=== PATIENT | female | born 1965 | race Hispanic/Latino ===

== ENCOUNTER 2019-01-15 12:33 | Outpatient (CLI) | payer BC ==
[~2019-01-15 12:33] MED LIST: Gadobenate Dimeglumine 529 MG/1 ML (20ML VIAL) ONE
--- NOTE | 2019-01-15 14:32 | MRI ---
FEXAM:MRI of right ankle performed with and without contrast enhancement HISTORY: Previous surgery for heel spur removal in May 2018 persistent pain since then. COMPARISON: Plain film examination done 06/23/2011 of the left heel. FINDINGS:Postoperative changes of the heel are noted. 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 Edema changes are seen in the region of the retrocalcaneal bursa. There are also edema [place] nges in the subarticular marrow along the superior aspect of the heel in this region. These edema [place] nges extend along the lateral side of the calcaneus with associated enhancement. There is also edema and enhancement of the adjacent soft tissues. In addition there are marrow edema changes involving the middle cuneiform mainly the dorsal half. The re is associated enhancement. The peroneus longus and brevis tendons are intact. The posterior tibialis, flexor digitorum longus an d flexor hallucis longus tendons are intact. Anterior extensor tendon group is normal. Sinus tarsi region and plantar fascia are unremarkable. IMPRESSION: 1. Postoperative changes of the heel. These include what appear to be a postoperative resection of a Akhil's type deformity and some ossification related to the distal Achilles tendon which shows asha ed tendinosis. Surgical anchors stabilize the Achilles tendon in the distal calcaneus. There are mumtaz a changes and enhancement which are mainly superior to the more proximal screw and along the lateral side of the calcaneus and there are edema changes and enhancement in the adjacent soft tissue without signs of abscess. These changes are greater than would be expected this late postoperative and an in fectious process would have to be considered. 2. The edema changes within the middle cuneiform could be on the basis of altered walking dynamics an d stress type reaction, hematogenous spread of infection is not excluded.
== END 2019-01-15 12:34 | disposition home or self-care (01) ==
LOC: SCSMRI 12:33
PROVIDERS: ATTEND Podiatrist Foot & Ankle Surgery
DX: M77.31 Calcaneal spur, right foot (principal); R60.0 Localized edema; Z98.890 Other specified postprocedural states
CPT/HCPCS: A9577